=== PATIENT | female | born 1975 | race Caucasian/White ===

== ENCOUNTER 2018-07-20 05:35 | Day surgery (SDC) | payer BC ==
--- NOTE | 2018-07-19 09:37 | PREOPHP ---
DATE OF ADMISSION: 07/20/2018 REASON FOR ADMISSION: This patient is coming on 07/20/2018, for a surgical procedure. HISTORY OF PRESENT ILLNESS: This is a 42-year-old female 3, para 3 with a history of Graves' disease and a history of taking control pills for a long time. This patient had requested a p ermanent sterilization for which she consulted me and she was given all her options of surgical versu s nonsurgical ways of family planning and she had decided for a permanent solution and a tubal ligati on. The patient had a history of thyroid disease, except for that, she has been in good health. THE PATIENT IS ALLERGIC TO SULFA. MEDICATIONS: 1. She is on oral contraceptives. 2. Methimazole 10 mg a day. FAMILY HISTORY: Noncontributory. REVIEW OF SYSTEMS: Negative except for Graves' disease. ALLERGIES: SULFA. SOCIAL HISTORY: No history of drugs. No history of smoking or drinking. FAMILY HISTORY: She has a family history for which was not consistent with anything major. PHYSICAL EXAMINATION: VITAL SIGNS: Stable. Blood pressure is 120/80, pulse is 80, respirations 16. She weighs 157 and sh e is 5 feet 4 inches. HEAD AND NECK: Normal. CHEST: Clear. HEART: Normal sinus rhythm. LUNGS: Clear. BREASTS: Soft, nontender, no masses. ABDOMEN: Soft, nontender, no masses. PELVIC: With normal external genitalia, normal uterus with slightly hypertrophic and adnexa are nega tive. EXTREMITIES: Normal. DIAGNOSES: 1. Normal physical examination. 2. Graves' disease. 3. Multiparity. 4. Voluntary sterilization. 5. Possible early fibroid uterus. PLAN: She is undergoing a pelviscopic tubal ligation. She has been advised for a salpingectomy vers us a partial salpingectomy in which case she could have a recurrent with a possible ectopic . She decided for an excision of both tubes with no possibilities of trying to fix the tub es up since they were going to be removed with the major advantage of protecting her from some of the ovarian cancers that are seen lately that are related to the fimbriated end of the tubes. She will have the pelviscopic bilateral salpingectomy. She has been advised of the possible risks and possibl e complications of the procedure with her alternatives and options. Written information was provided . She had no more questions and agreed to go ahead with the procedure with full understanding and no more questions. Dictated By: MANDIE OSORIO/HUNG Conf#: [id number] DID#: [id number]
[~2018-07-20] VITALS: Ht 160 cm; Wt 69.9 kg
[2018-07-20] VITALS (14 sets, daily range): BP systolic 102–125; BP diastolic 61–75; PULSE 66–82; RESP 10–18; Ht 160 cm; Wt 69.9 kg
[~2018-07-20 05:35] MED LIST: METH-493 PO; NORE1TAB26 PO; PANT40TA4 PO
[2018-07-20] MEDS ORDERED: METH10TA5 PO (06:51)
[2018-07-20] MEDS ORDERED: NORE-101 PO (06:53)
[2018-07-20] MEDS ORDERED: BUPIVACAINE 0.5%/EPI (SDV) 30 ML INJ ONE (06:59)
[2018-07-20] MEDS ORDERED: CEFAZOLIN 2 GM/50 ML (PMX) 50 ML IVPB ONE (07:00)
--- NOTE | 2018-07-20 07:16 | PREAC ---
Date/Time of Note Date/Time of Note DATE: 07/20/18 TIME: 07:15 Anesthesia Eval and Record Evaluation Time Pre-Procedure Interview DATE: 07/20/18 TIME: 07:15 Age 42 Sex female NPO: 8 hrs Preoperative diagnosis Voluntary sterilization Planned procedure Laparoscopic bilateral salpingectomy Past Medical History Past Medical History: Includes Endo: Hyperthyroid, Other (Grave's disease) Surgery & Anesthesia Issues No known issue Meds Anticoagulation: No Beta Lv within 24 hr: No Reason Beta Lv not given: Pt. not on B-Lv Reported Medications Norethindrone AC-Eth Estradiol (Norethin-Eth Estrad 1 mg-5 Mcg) 1 Each Tablet, 1 EACH PO DAILY, TAB 07/20/18 Methimazole* (Methimazole*) 10 Mg Tablet, 10 MG PO DAILY, TAB 07/20/18 Discontinued Reported Medications Norethindrone A-E Estradiol (Junel) 1 Tab Tablet, 1 TAB PO, TAB 09/25/15 Methimazole* (Methimazole*) 5 Mg Tablet, 5 MG PO TID, TAB 09/25/15 Pantoprazole* (Pantoprazole*) 40 Mg Tablet.dr, 40 MG PO DAILY, TAB 09/25/15 Current Medications Cefazolin Sodium/ Dextrose 50 ml @ 100 mls/hr PRE-OP ONCE IVPB ; Start 07/20/18 at 07:00; Stop 07/20/18 at 07:29 Meds reviewed: Yes Allergies Coded Allergies: sulfamethoxazole (Verified Allergy, Severe, 07/20/18) HIVES trimethoprim (Verified Allergy, Severe, 07/20/18) HIVES Allergies Reviewed: Yes Labs/Studies Labs Reviewed: Reviewed by anesthesiologist test: Negative Pre-procedure Exam Airway: Adequate mouth opening Mallampati: Mallampati II Teeth: Normal Lung: Normal Heart: Normal ASA Physical Status ASA physical status: 2 Emergency: None Planned Anesthetic General/MAC: ETT Planned Pain Management Parenteral pain med Pre-operative Attestations Prior to commencing anesthesia and surgery, the patient was re-evaluated, there was verification of: *The patient's identity *The results of appropriate recent lab work and preoperative vital signs *The above evaluation not changing prior to induction *Anesthetic plan, risk benefits, alternative and complications discussed with patient/family; questions answered; patient/family understands, accepts and wishes to proceed. IVAN AMBROCIO MD July 20, 2018 07:16
[2018-07-20] MEDS ORDERED: PROPOFOL 20 ML ONE (07:31)
[2018-07-20] MEDS ORDERED: ROCURONIUM 50 MG INJ ONE (07:31)
[2018-07-20] MEDS ORDERED: LIDOCAINE 2% (SDV) 5 ML INJ ONE (07:31)
[2018-07-20] MEDS ORDERED: GLYCOPYRROLATE 0.4 MG INJ ONE (07:31)
[2018-07-20] MEDS ORDERED: NEOSTIGMINE 3 MG/3 ML SYRINGE ONE (07:31)
[2018-07-20] MEDS ORDERED: MEPERIDINE 100 MG INJ ONE (07:31)
[2018-07-20] MEDS ORDERED: SUCCINYLCHOLINE CHLORIDE 100 MG/5 ML SYG IV ONE (07:31)
--- NOTE | 2018-07-20 07:44 | HPN ---
Date/Time of Note Date/Time of Note DATE: 07/20/18 TIME: 07:44 Interval H&P Admission Note Pt. seen H&P reviewed: No system changes MANDIE WILEY MD July 20, 2018 07:44
[2018-07-20] MEDS ORDERED: ONDANSETRON 4 MG INJ ONE (08:38)
[2018-07-20] MEDS ORDERED: METOCLOPRAMIDE 10 MG INJ ONE (08:38)
[2018-07-20] MEDS ORDERED: MEPERIDINE 25 MG INJ IV PRN (09:30)
[2018-07-20] MEDS ORDERED: HYDROmorphONE 1 MG/5 ML IV SYRINGE IV PRN ×2 (09:30)
[2018-07-20] MEDS ORDERED: OXYCODONE/ACETAMINOPHEN (5/325) TAB PO PRN ×2 (09:30)
[2018-07-20] MEDS ORDERED: ONDANSETRON 4 MG INJ IV PRN (09:30)
[2018-07-20] MEDS ORDERED: DIPHENHYDRAMINE 50 MG INJ IV PRN (09:30)
[2018-07-20] MEDS ORDERED: FENTAnyl 50 MCG/ML VIAL IV PRN ×3 (09:30)
[2018-07-20] MEDS ORDERED: MIDAZOLAM 1 MG/ML 2 ML INJ IV PRN (09:30)
[2018-07-20] MEDS ORDERED: METOCLOPRAMIDE 10 MG INJ IV PRN (09:30)
[2018-07-20] MEDS ORDERED: HYDROmorphONE 1 MG/5 ML IV SYRINGE IV ONE (09:32)
--- NOTE | 2018-07-20 09:40 | PAC ---
Date/Time of Note Date/Time of Note DATE: 07/20/18 TIME: 09:40 Post-Anesthesia Notes Post-Anesthesia Note Last documented vital signs Vital Signs Date Temp Pulse Resp B/P (MAP) Pulse Ox O2 O2 Flow FiO2 Time Delivery Rate 07/20/18 74 16 114/65 96 Room Air 09:33 (81) 07/20/18 98.7 09:22 Activity: WNL Respiratory function: WNL Cardiovascular function: WNL Mental status: Baseline Pain reasonably controlled: Yes Hydration appropriate: Yes Nausea/Vomiting absent: Yes Comments BT: 98.7 IVAN AMBROCIO MD July 20, 2018 09:40
[2018-07-20] MEDS: HYDROmorphONE 1 MG/5 ML IV SYRINGE IV PRN ×2 (09:56→10:01)
--- NOTE | 2018-07-20 09:58 | PD.PPDC ---
[facility] OFFICE MANAGER Discharge Instruction Condition [id number] Patient Condition: Lrilq5o Good Diet [id number] Diet: Scppi1w Resume Regular Diet Activity/Restrictions [id number] Activity: Szrge2i Normal Activity May Shower [id number] Restrictions: Ohkvb5n No Exercising No Lifting No Driving No Sexual Activity Nothing in the Vagina No [place] No Tampons, douche Wound/Drain Care Instructions Acohz8Yo Wound/Drain Care Instructions: Ittgr3b Wash with soap and water Keep clean and dry Follow-up Follow-up with Physician: 1, 2, Week/Weeks Return to clinic for [id number] MANAGER [place] Instructions: Gepxm5k Fever greater than 101 Chills Worsening abdominal pain Excessive Vaginal Bleeding More than 2 pads per hour Unable to tolerate diet [id number] Surgical Instructions: [id number] Incisional Drainage Incisional Redness MANDIE WILEY MD July 20, 2018 09:58
[2018-07-20] MEDS ORDERED: KETOROLAC 30 MG INJ IV PRN (10:00)
--- NOTE | 2018-07-20 10:02 | SIPON ---
Date/Time of Note Date/Time of Note DATE: 07/20/18 TIME: 10:00 Operative Report Preoperative Diagnosis Multiparity Fibroid uterus Postoperative Diagnosis Same plus left ovarian cyst Operation/Procedure Performed Pelviscopy. Bilateral salpingectomy Surgeon see signature line career services assistant engineering technologist Anesthesia: general Estimated blood loss: minimal Transfusion Required none Specimen Bilateral tubes Grafts/Implants none Complications none MANDIE WILEY MD July 20, 2018 10:02
--- NOTE | 2018-07-20 11:50 | OPR ---
DATE OF OPERATION: 07/20/2018 OPERATION PERFORMED: Pelviscopy and bilateral salpingectomy. PREOPERATIVE DIAGNOSES: 1. Multiparity. 2. Graves' disease. 3. Voluntary sterilization. 4. Early fibroid uterus. POSTOPERATIVE DIAGNOSES: 1. Multiparity. 2. Graves' disease. 3. Voluntary sterilization. 4. Early fibroid uterus. 5. Left ovarian cyst. ANESTHESIA: General. ANESTHESIOLOGIST: Dr. Bonilla. DESCRIPTION OF PROCEDURE: The patient was given general anesthesia, placed in the lithotomy position . The abdomen was prepped and draped. Examination under anesthesia revealed that the uterus was hyp ertrophic. Adnexa were nonpalpable. The vaginal speculum was applied. The HUMI was inserted inside the uterus. The small incision was made in the inferior edge of the umbilicus and the abdomen was o pened in layers without difficulties placing a stitch on either side of the fascia where it was incis ed. The peritoneum was entered bluntly and the Javier was inserted. The second trocar and cannula w as inserted suprapubically over the midline and 1 laterally on the right side 5 cm below the umbilica l area distal to the anterior rectus muscle. The instruments were applied after visualization of the pelvis that revealed that the uterus had multiple fibroid appearance. Both tubes were normal. Both ovaries were normal. The left ovary had a cyst, possibly a follicular cyst. The gyrus was inserted in 1 of the trocars and the tube was held up and the mesosalpinx was burned with bipolar current all the way to the ostium of the cornual end of the tube at waist level. The tube was cut after being b urned. The removal of the tube was through the video camera incision using a 5 mm camera not in the middle, but in the trocar next to it. The same thing was done on the other side. The procedure was finished by removing all the instruments. The gas inflated of the abdomen and the abdomen was closed with a Vicryl suture for the fascia, and 3-0 Monocryl subcuticular to all 3 incisions. Marcaine katharine ution was injected in all 3 incisions for pain control. Some of the Marcaine was leaking through the umbilical incision. The Dermabond was applied to all 3 incisions as well. The procedure was finish ed by removing all the instruments and the gas had been deflated of the abdomen and the patient tania ated the procedure well and left the OR awake and stable. Sponge counts and instrument counts were c orrect. Intravenous antibiotics were given for prophylaxis. Dictated By: MANDIE OSORIO/HUNG Conf#: [id number] DID#: [id number]
== END 2018-07-20 12:04 | disposition home or self-care (01) ==
LOC: SDS 05:35
PROVIDERS: ATTEND Obstetrics & Gynecology
DX: Z30.2 Encounter for sterilization (principal); E05.00 Thyrotoxicosis with diffuse goiter without thyrotoxic crisis or storm; D25.9 Leiomyoma of uterus, unspecified; N83.202 Unspecified ovarian cyst, left side
CPT/HCPCS: 58661; 88302; J0690; J1170; J2175; J2405; J2710; J2765; Z7512; Z7610